=== PATIENT | female | born 1990 | race Caucasian/White ===

== ENCOUNTER 2024-04-12 09:49 | Emergency (ER) | payer OTHER ==
[2024-04-12 10:00] VITALS: BMI 27.6
[2024-04-12] MEDS: SODIUM CHLORIDE FOR INHALATION 3 ML VIAL.NEB IH ONE (10:52)
[2024-04-12 12:04] VITALS: BP 100/74; PULSE 97; TEMP 98.2
[2024-04-12] MEDS: LACTATED RINGERS SOLUTION 500 ML IV ONE ×2 (12:05→13:00)
[2024-04-12 12:13] VITALS: RESP 16
== END 2024-04-12 14:04 | disposition home or self-care (01) ==
LOC: JERFT 09:49 → JER 09:49
PROC: 3E0337Z Introduction of Electrolytic and Water Balance Substance into Peripheral Vein, Percutaneous Approach (ICD-10-PCS; principal; 2024-04-12)
PROC: 3E0337Z Introduction of Electrolytic and Water Balance Substance into Peripheral Vein, Percutaneous Approach (ICD-10-PCS; 2024-04-12)
PROC: 3E0337Z Introduction of Electrolytic and Water Balance Substance into Peripheral Vein, Percutaneous Approach (ICD-10-PCS; 2024-04-12)
DX: O99.513 Diseases of the respiratory system complicating pregnancy, third trimester (principal); J06.9 Acute upper respiratory infection, unspecified; J02.9 Acute pharyngitis, unspecified; O99.891 Other specified diseases and conditions complicating pregnancy; R05.9 Cough, unspecified; R68.83 Chills (without fever); Z3A.31 31 weeks gestation of pregnancy; Z20.822 Contact with and (suspected) exposure to COVID-19
CPT/HCPCS: 0241U-QW; 99284-25